=== PATIENT | male | born 1975 | race African-American/Black ===

== ENCOUNTER 2016-10-03 18:13 | Emergency (ER) | payer MEDICAID ==
[~2016-10-03] VITALS: Ht 195.6 cm; Wt 146.1 kg
[2016-10-03 18:22] VITALS: BP 134/80
== END 2016-10-03 21:31 | disposition home or self-care (01) ==
LOC: ER 18:40
DX: J06.9 Acute upper respiratory infection, unspecified (principal); M41.9 Scoliosis, unspecified; Z86.73 Personal history of transient ischemic attack (TIA), and cerebral infarction without residual deficits